=== PATIENT | female | born 1990 | race Hispanic/Latino ===

== ENCOUNTER 2023-01-13 04:20 | Emergency (ER) | payer OTHER ==
[~2023-01-13] VITALS: Ht 165.1 cm; Wt 59.4 kg
[2023-01-13] MEDS ORDERED: LACTULOSE 20 GM/30 ML UDCUP ONE (04:59)
[2023-01-13 05:33] LABS: HCG,QUALITATIVE URINE NEGATIVE (NEGATIVE)
[2023-01-13 05:40] LABS: APPEARANCE,URINE CLOUDY (CLEAR); BACTERIA,URINE RARE /HPF (None Seen); BILIRUBIN,URINE NEGATIVE (NEGATIVE); COLOR,URINE LIGHT-ORANGE (YELLOW); GLUCOSE, URINE (UA) NEGATIVE (NEGATIVE); KETONES,URINE NEGATIVE (NEGATIVE); LEUKOCYTE ESTERASE ,URINE 25 Leu/uL (NEGATIVE); MUCUS,URINE MOD LPF (None Seen); NITRATE,URINE NEGATIVE (NEGATIVE); OCCULT BLOOD,URINE LARGE (NEGATIVE); PH,URINE 8.5 (5.0-8.0); PROTEIN,URINE 70 mg/dL (NEGATIVE); RBC,URINE TNTC /HPF (0-1); SQUAMOUS EPITHELIAL CELL,UR MANY /HPF (0-2); UROBILINOGEN,URINE 0.2 mg/dL (0.2-1.0)
[2023-01-13 06:21] VITALS: BP 122/56
== END 2023-01-13 06:22 | disposition home or self-care (01) ==
LOC: EDH 04:20
DX: K59.00 Constipation, unspecified (principal); Z98.890 Other specified postprocedural states
CPT/HCPCS: 81001; 81025; 87088

== ENCOUNTER 2025-08-01 10:53 | Emergency (ER) | payer SELFPAY ==
[~2025-08-01] VITALS: Ht 162.6 cm; Wt 55.3 kg
--- NOTE | 2025-08-01 11:00 | ERN ---
ED Note History of Present Illness Stated Complaint: PALPITATIONS Chief Complaint: Palpitations Time Seen by MD: 10:56 Dictation: PATIENT IS A 35-YEAR-OLD FEMALE COMING IN TODAY WITH COMPLAINTS OF HEART PALPITATIONS ON AND OFF FOR THE LAST THREE WEEKS. SHE HAS NO JAW PAIN NO ARM PAIN NO NECK PAIN. SHE STATES SHE DOES HAVE A HISTORY OF ASTHMA AND RAD ALL FN INHALERS THAT SHE WOULD NORMALLY GET IN [place] A MONTH AGO. FEVER NO CHILLS. NO LOSS OF TASTE OR SMELL NO PRIMARY CARE DOCTOR LOCALLY Allergies: Coded Allergies: No Known Allergies (Unverified Allergy, Unknown, 01/13/23) Past Medical History Past Medical History: GERD Surgical History: Surgical History Other: X3 C-SECTIONS History: Not Applicable RN Note Reviewed/Agreed w/PFSH: Yes Review of System Dictation CONSTITUTIONAL: NEGATIVE EXCEPT FOR HPI HEAD/FACE: NEGATIVE EXCEPT FOR HPI EENT: NEGATIVE EXCEPT FOR HPI RESPIRATORY: NEGATIVE EXCEPT FOR HPI INTERMITTENT PALPITATIONS WITH THE OCCASION AL SOB GASTROINTESTINAL/ABDOMINAL: NEGATIVE EXCEPT FOR HPI GENITOURINARY: NEGATIVE EXCEPT FOR HPI MUSCULOSKELETAL: NEGATIVE EXCEPT FOR HPI INTEGUMENTARY: NEGATIVE EXCEPT FOR HPI NEUROLOGICAL/PSYCH: NEGATIVE EXCEPT FOR HPI HEMATOLOGIC/LYMPHATIC: NEGATIVE EXCEPT FOR HPI ALL SYSTEMS NEGATIVE, EXCEPT NOTED ABOVE. 13 POINT REVIEW OF SYSTEMS ASSESSED AND ALL NEGATIVE EXCEPT FOR ABOVE. Initial Vital Sign VS Vital Signs Date Time Temp Pulse Resp B/P (MAP) Pulse Ox O2 Delivery O2 Flow Rate FiO2 08/01/25 10:58 98.1 64 18 122/50 98 Room Air 0 Physical Exam Dictation VITAL SIGNS REVIEWED GENERAL APPEARANCE: ALERT, ORIENTED X 3, NO ACUTE DISTRESS, WELL DEVELOPED, NOURISHED. NO ACUTE DISTRESS HEAD AND FACE: NON-TRAUMATIC. EYES: PERRL, PINK CONJUNCTIVAS, EYELID NO TRAUMA, ANTERIOR CHAMBER WITH ARCUS SENILIS. EARS: PINNAS INTACT AND NO SIGNS OF TRAUMA OR ERYTHEMA EAR CANALS CLEAR AND NO DISCHARGE TM NO ERYTHEMA NOSE: NO DISCHARGE, NO BLEEDING. OROPHARYNX: MOUTH NORMAL, TONGUE PINK, PHARYNX CLEAR,NO ERYTHEMA, TONSILS NO EXUDATES, NO ABSCESSES NOTED, MUCOUS MEM BRANE MOIST NECK: SUPPLE, NON-TENDER, NO THYROMEGALY, NO MASSES, NO JVD, NO BRUITS BREAST:DEFERRED CHEST:NO TENDERNESS, NO CREPITUS, NO PARADOXICAL MOVEMENT, NO RETRACTIONS LUNGS:CLEAR, WELL-VENTILATED, SYMMETRIC, NO RALES, NO WHEEZING, NO RHONCHI, NO STRIDOR, GOOD BREATH SOUNDS BILATERALLY HEART RATE IN TRIAGE 77 AND REGULAR HEART: REGULAR RATE, REGULAR RHYTHM, NO MURMUR, NO GALLOPS VASCULAR: NO PERIPHERAL EDEMA, ABDOMEN: SOFT, POSITIVE BOWEL SOUNDS, NONDISTENDED, NO GUARDING, NONTENDER, NO REBOUND, NO MASSES NO HEPATOMEGALY, NO SPLENOMEGALY, NO CHAMBERS'S SIGN, NO HERNIAS. RECTAL: DEFERRED GENITAL: DEFERRED NEUROLOGICAL: NORMAL SPEECH, MOTOR FUNCTION INTACT, SENSORY FUNCTION INTACT MUSCULOSKELETAL: NECK NONTENDER, FULL RANGE OF MOTION, BACK NONTENDER, FULL RANGE OF MOTION, EXTREMITIES: NONTENDER, FULL RANGE OF MOTION SKIN: COLOR PINK, DRY, NO TURGOR, NO RASH, NO LACERATIONS, NO ABRASIONS, NO CONTUSIONS. LYMPHATIC: DEFERRED Results (Laboratory/Radiology) Laboratory/Radiology Laboratory Tests Test 08/01/25 11:13 White Blood Count 6.4 K/uL (4.8-10.8) Red Blood Count 3.86 MIL/uL (4.00-5.50) L Hemoglobin 11.5 g/dL (12.0-16.0) L Hematocrit 35.5 % (36-48) L Mean Corpuscular Volume 92.0 fL (79-99) Mean Corpuscular Hemoglobin 29.8 pg (27.0-33.0) Mean Corpuscular Hemoglobin Concent 32.4 g/dL (32.0-36.0) Red Cell Distribution Width 14.2 % (11.0-15.5) Platelet Count 247 K/uL (130-400) Mean Platelet Volume 10.7 fL (7.5-10.5) H Immature Granulocyte % (Auto) 0.2 % (0-1) Neutrophils (%) (Auto) 66.1 % (40.0-77.0) Lymphocytes (%) (Auto) 24.6 % (21.0-51.0) Monocytes (%) (Auto) 6.8 % (3.0-13.0) Eosinophils (%) (Auto) 2.0 % (0.0-8.0) Basophils (%) (Auto) 0.3 % (0.0-5.0) Neutrophils # (Auto) 4.2 K/uL (1.8-7.7) Lymphocytes # (Auto) 1.6 K/uL (1.0-4.8) Monocytes # (Auto) 0.4 K/uL (0.1-1.0) Eosinophils # (Auto) 0.13 K/uL (0.00-0.70) Basophils # (Auto) 0.02 K/uL (0.00-0.20) Absolute Immature Granulocyte (auto 0.01 K/uL (0-1) Nucleated Red Blood Cells 0.0 % (0.0-0.19) Sodium Level 142 mmol/L (136-145) Potassium Level 4.0 mmol/L (3.5-5.1) Chloride Level 106 mmol/L (101-111) Carbon Dioxide Level 29 mmol/L (21-32) Blood Urea Nitrogen 7 mg/dL (7-18) Creatinine 0.6 mg/dL (0.5-1.0) Glomerular Filtration Rate Calc 120 mL/min (>90) Random Glucose 73 mg/dL (70-105) Total Calcium 8.3 mg/dL (8.5-10.1) L Troponin I High Sensitivity 12 ng/L (4-50) Serum Test, Qualitative NEGATIVE (NEGATIVE) Labs Reviewed?: Yes EKG Comment: EKG SINUS BRADYCARDIA/HEART RATE 50/AXIS NORMAL/NO ECTOPY ED Course ED Course Orders Procedure Category Date Status Time Cbc With Differential LAB 08/01/25 Complete 10:58 Chest 1vw RAD 08/01/25 Taken 10:58 12 Lead Ekg Tracing- EKG 08/01/25 Complete Technical 10:58 Troponin I High LAB 08/01/25 Complete Sensitivity 10:58 Basic Metabolic Panel LAB 08/01/25 Complete 10:58 Testing, LAB 08/01/25 Complete Serum Hcg 10:58 Vital Signs Date Time Temp Pulse Resp B/P (MAP) Pulse Ox O2 Delivery O2 Flow Rate FiO2 08/01/25 10:58 98.1 64 18 122/50 98 Room Air 0 1232/WORKUP HIS NECK/CHEST X-RAY CLEAR PATIENT DISCHARGED WITH ALBUTEROL AND TOLD TO FOLLOW UP WITH ONE OF THE DOCTORS ON THE LIST PROVIDED HER HEART Score Response (Comments) Value History: Low suspicion (0) 0 EKG: Normal 0 Age: < 45yrs (0) 0 Risk Factors: No known risk factors (0) 0 Initial Troponin: Normal limit (0) 0 Total 0 Medical Decision Making MDM MDM: DIFFERENTIAL DIAGNOSIS: ACS/AMI/PNEUMONIA/BRONCHITIS/ASTHMA EXACERBATION/ELECTROLYTE IMBALANCE/DEHYDRATION/PALPITATIONS RATIONALE: TESTS CONSIDERED AND ORDERED SECONDARY TO SHARED DECISION MAKING INCLUDE: EKG/LABS/ PREVIOUS OUTSIDE RECORDS REVIEWED: OLD ER VISITS. RISK OF COMPLICATION AND/OR MORBIDITY OR MORTALITY OF PATIENT MANAGEMENT: NONE MEDICATIONS-PER MEDICATION RECONCILIATION NEED FOR HOSPITALIZATION: PATIENT DOES NOT MEET CRITERIA FOR HOSPITALIZATION. RADIOLOGY NO NEED FOR EMERGENCY MAJOR/MINOR SURGERY: NO THERE ARE NO SOCIAL CONCERNS WITH THIS PATIENT. PRESCRIPTION DRUG MANAGEMENT ALBUTEROL PRESCRIPTIONS WILL INCLUDE SYMPTOMATIC CARE PATIENT'S PRIOR EXTERNAL MEDICAL RECORDS FROM OTHER ER VISITS WERE REVIEWED BY ME INDICATED. PRIOR TESTING AND RESULTS FROM PREVIOUS VISITS WERE REVIEWED. PRIOR TESTS WERE TAKEN INTO ACCOUNT WITH MEDICAL DECISION MAKING AND RESOURCE UTILIZATION, INDEPENDENT HISTORIAN/HISTORIANS WERE USED TO OBTAIN COMPLETE MEDICAL HISTORY. I INDEPENDENTLY INTERPRETED THE TEST THAT WERE PERFORMED, RESULTS WERE REVIEWED BY ME AND CONSIDERED FINDINGS ON RADIOLOGY IF ORDERED. MEDICAL MANAGEMENT AND EXAMINATION INTERPRETATION DISCUSSIONS WERE HAD BY ME WITH OTHER QUALIFIED HEALTHCARE PROFESSIONALS INDICATED FOR THE PATIENT'S CARE. DX & DISP Disposition: Discharge Departure Impression: Primary Impression: Palpitations Additional Impression: History of asthma Condition: Stable Scripts Albuterol Sulfate (Ventolin Hfa/Proventil Hfa/Proair Hfa) 90 Mcg Puff 2 PUFF IH Q4H for WHEEZING, #1 INHALER 0 Refills Prov: BRANDO CUMMINGS EXPLOSIVE MAN 08/01/25 Additional Instructions: FOLLOW-UP WITH PRIMARY CARE PROVIDER IN 1 TO 2 DAYS. TAKE MEDICATIONS DIRECTED HERE IN THE EMERGENCY ROOM. OKAY TO CONTINUE HOME MEDICATIONS UNLESS OTHERWISE DISCUSSED DURING YOUR VISIT IN THE EMERGENCY ROOM TODAY. RETURN TO YOUR NEAREST EMERGENCY ROOM IF SYMPTOMS WORSEN OR IF THERE IS NO IMPROVEMENT. CALL 911 IF YOU NEED IMMEDIATE ASSISTANCE. TAKE TYLENOL OR MOTRIN OVE [id number] NEEDED AND IF NO CONTRAINDICATIONS ARE PRESENT. INCREASE ORAL HYDRATION. A WOUND CULTURE OR URINE CULTURE WAS ORDERED HERE IN THE EMERGENCY ROOM DEPARTMENT PLEASE FOLLOW-UP WITH PRIMARY CARE PROVIDER AND ADVISE THEM TO GET REPEAT PORTS FROM OUR FACILITY. IF YOU HAD ANY JAIME WRAP/SPLINTS THAT WERE APPLIED HERE, PLEASE DO NOT REMOVE THEM UNTIL YOU SEE YOUR PRIMARY CARE OR SPECIALTY. FOLLOW UP WITH ONE OF THE DOCTORS ON THE LIST PROVIDED YOU IN THE NEXT 1-2 DAYS. RESUME THE USE OF YOUR MEDICATIONS THAT WERE PRESCRIBED BEFORE Referrals: SELF,REFERRAL (PCP) Time of Disposition: 12:39 I have reviewed the case, and I agree with, Diagnosis and Plan BRANDO CUMMINGS NP Aug 01, 2025 11:00
--- NOTE | 2025-08-01 11:08 | EKG ---
[facility] Test Date: 2025-08-01 Test Time: 11:01:34 Pat Name: FANI CADENA Department: ED Room: Gender: F Night Manager: [id number] : 1990 Requested By: BRANDO CUMMINGS Order Number: [id number] Reading MD: Harry Smith Measurements Intervals [place] Rate: 63 P: 72 HI: 133 QRS: 69 QRSD: 87 T: 63 QT: 395 QTc: 404 Interpretive Statements Sinus rhythm Acute STT angle No previous ECG available for comparison Electronically Signed On 08-01-2025 21:34:32 CDT by Harry Smith Please click the below link to view image of tracing.
[2025-08-01 11:18] LABS: IMMATURE GRANULOCYTE ABSOLUTE 0.01 K/uL (0-1); NUCLEATED RED BLOOD CELLS 0.0 % (0.0-0.19); PLATELET COUNT (AUTO) 247 K/uL (130-400); RED BLOOD CELL COUNT(AUTO) 3.86 MIL/uL (4.00-5.50); RED CELL DISTRIBUTION WIDTH 14.2 % (11.0-15.5); WHITE BLOOD COUNT (AUTO) 6.4 K/uL (4.8-10.8)
[2025-08-01 11:26] LABS: CREATININE 0.6 mg/dL (0.5-1.0); GLOMERULAR FILTR. RATE CALC 120.0 mL/min (>90); GLUCOSE,RANDOM 73.0 mg/dL (70-105); SODIUM SERUM 142.0 mmol/L (136-145); UREA NITROGEN, BLOOD 7.0 mg/dL (7-18)
--- NOTE | 2025-08-01 12:37 | HMCIMG ---
EXAM: CR Chest, 1 View. CLINICAL HISTORY: CHEST PAIN/PALPITATIONS COMPARISON: None provided. FINDINGS: LUNGS: There is no mass, infiltrate, or acute pulmonary abnormality. PLEURAL SPACES: No evidence of pleural effusion or pneumothorax. MEDIASTINUM: The cardiomediastinal silhouette is within normal limits. BONES: No acute osseous abnormality. IMPRESSION: No acute cardiopulmonary pathology is evident. /[place]
[2025-08-01] MEDS ORDERED: ALBUHFA IH (12:39)
[2025-08-01 13:01] VITALS: BP 120/52; PULSE 62; RESP 16; TEMP 98.1; O2SAT 98
== END 2025-08-01 13:06 | disposition home or self-care (01) ==
LOC: EDH 10:53
DX: R00.2 Palpitations (principal); J45.909 Unspecified asthma, uncomplicated
CPT/HCPCS: 36415; 71045; 80048; 84484; 84703; 85025; 93005; 99285